=== PATIENT | female | born 1940 | race Caucasian/White ===

== ENCOUNTER 2017-05-06 14:13 | Observation (INO) | payer MEDICARE, OTHER ==
[~2017-05-06] VITALS: Ht 172.7 cm; Wt 93.2 kg
[~2017-05-06 14:13] MED LIST: GLIM1TAB46 PO; LEVO125T PO; METF500T PO
[2017-05-06] MEDS ORDERED: aspirin 81mg tab.chew PO ONE (14:45)
[2017-05-06 15:09] LABS: BASOPHILS % (AUTO) 0.6 % (0-1); EOSINOPHILS # (AUTO) 0.1 X10'3 (0-0.9); EOSINOPHILS % (AUTO) 2.1 % (0-6); HEMATOCRIT 34.6 % (35.0-45.0); HEMOGLOBIN 11.9 g/dl (12.0-16.0); LYMPHOCYTES # (AUTO) 0.9 X10'3 (1.1-4.8); LYMPHOCYTES % (AUTO) 13.1 % (21-51); MEAN CORPUSCULAR HEMOGLOBIN 30.7 PG (27.0-31.0); MEAN CORPUSCULAR HGB CONC 34.6 % (33.0-36.5); MEAN CORPUSCULAR VOLUME 88.9 FL (78-98); MEAN PLATELET VOLUME 6.1 FL (7.4-10.4); MONOCYTES # (AUTO) 0.6 X10'3 (0-0.9); MONOCYTES % (AUTO) 8.8 % (2-12); NEUTROPHILS # (AUTO) 5.4 X10'3 (1.8-7.7); NEUTROPHILS % (AUTO) 75.4 % (42-75); PLATELET COUNT 215 X10'3 (140-440); RED BLOOD COUNT 3.89 X10'6 (4.20-5.60); RED CELL DISTRIBUTION WIDTH 19.9 % (11.5-14.5); WHITE BLOOD COUNT 7.1 X10'3 (4.5-11.0)
[2017-05-06] MEDS ORDERED: ASPI-920 PO (15:10)
[2017-05-06] MEDS ORDERED: ESCI10TA54 PO (15:10)
[2017-05-06] MEDS ORDERED: AMLO2.5T PO (15:10)
[2017-05-06] MEDS ORDERED: ATOR10TA PO (15:10)
[2017-05-06] MEDS ORDERED: NEBI2.5T3 PO (15:10)
[2017-05-06] MEDS ORDERED: PRED10TA PO (15:10)
[2017-05-06 15:31] LABS: ALANINE AMINOTRANSFERASE 27 U/L (12-78); ALBUMIN 3.3 G/DL (3.4-5.0); ALKALINE PHOSPHATASE 51 IU/L (46-116); ANION GAP 7 (8-16); ASPARTATE AMINO TRANSFERASE 17 U/L (10-37); BILIRUBIN,TOTAL 0.5 MG/DL (0.1-1.0); BLOOD UREA NITROGEN 18 MG/DL (7-18); BUN/CREATININE RATIO 14.9 (6.6-38.0); CALCIUM 8.8 MG/DL (8.5-10.1); CHLORIDE 101 MMOL/L (99-107); CREATININE 1.21 MG/DL (0.40-0.90); GLUCOSE 206 MG/DL (70-104); MAGNESIUM 1.6 MG/DL (1.5-2.4); POTASSIUM 4.6 MMOL/L (3.5-5.1); SODIUM 136 MMOL/L (135-145); TOTAL CARBON DIOXIDE 27.9 MMOL/L (24-32); TOTAL PROTEIN 6.7 G/DL (6.4-8.2); eGFR 43 ML/MIN
[2017-05-06] MEDS ORDERED: nitroGLYCERIN 1gm ointment UD TP ONE (15:50)
[2017-05-06] MEDS ORDERED: metoprolol tartrate 1mg/ml inj IV PRN (18:25)
[2017-05-06] MEDS ORDERED: atropine 0.1mg/ml 10ml syringe IV PRN (18:25)
[2017-05-06] MEDS ORDERED: atorvastatin 10mg tablet PO SCH (18:25)
[2017-05-06] MEDS ORDERED: acetaminophen 325mg tablet PO PRN ×2 (18:25)
[2017-05-06] MEDS ORDERED: normal saline 500ml IV soln 500 ML IV SCH (18:25)
[2017-05-06] MEDS ORDERED: morphine 2 MG/ML inj. syringe IV PRN ×2 (18:25)
[2017-05-06] MEDS ORDERED: nitroGLYCERIN 0.4mg SUBLingual tab SL PRN ×2 (18:25)
[2017-05-06] MEDS ORDERED: DOBUTamine-DoBUTrex 500mg/D5W 250 ML IV ONE ×2 (18:25→19:15)
[2017-05-06] MEDS ORDERED: normal saline 500ml IV soln 500 ML IV ONE (18:33)
[2017-05-06] MEDS ORDERED: MESSAGE TO PHARMACY PO ONE (18:55)
[2017-05-06] MEDS ORDERED: glucagon, human recombinant 1mg kit SUBCUT PRN (18:55)
[2017-05-06] MEDS ORDERED: insulin Lispro (HumaLOG) vial - multi-dose SQ SCH (18:55)
[2017-05-06] MEDS ORDERED: dextrose 50%-water 50ml dispensing syringe IV PRN ×2 (18:55)
[2017-05-06] MEDS ORDERED: dextrose ORAL solution 15 GM/59 ML bottle PO PRN ×2 (18:55)
[2017-05-06 19:25] LABS: HEMOGLOBIN A1C 6.9 % (4.5-6.2)
[2017-05-06 20:00] VITALS: BP 147/66
[2017-05-06] MEDS ORDERED: NEBIVOLOL HCL 5 MG PO SCH (20:00)
[2017-05-06] MEDS: amLODIPine 5mg tablet PO SCH (20:20)
[2017-05-06] MEDS ORDERED: insulin glargine (Lantus) pen - multi-dose SQ SCH (21:00)
[2017-05-06 23:00] VITALS: BP 149/67
[2017-05-07] VITALS (10 sets, daily range): BP systolic 112–160; BP diastolic 60–71
[2017-05-07 01:51] LABS: ANION GAP 8 (8-16); BLOOD UREA NITROGEN 22 MG/DL (7-18); BUN/CREATININE RATIO 22.4 (6.6-38.0); CALCIUM 8.8 MG/DL (8.5-10.1); CHLORIDE 102 MMOL/L (99-107); CREATININE 0.98 MG/DL (0.40-0.90); GLUCOSE 166 MG/DL (70-104); MAGNESIUM 1.8 MG/DL (1.5-2.4); POTASSIUM 3.7 MMOL/L (3.5-5.1); SODIUM 135 MMOL/L (135-145); TOTAL CARBON DIOXIDE 25.4 MMOL/L (24-32); eGFR 55 ML/MIN
[2017-05-07 06:33] LABS: BASOPHILS % (AUTO) 0.8 % (0-1); EOSINOPHILS # (AUTO) 0.1 X10'3 (0-0.9); EOSINOPHILS % (AUTO) 1.8 % (0-6); HEMATOCRIT 34.3 % (35.0-45.0); HEMOGLOBIN 11.8 g/dl (12.0-16.0); LYMPHOCYTES # (AUTO) 1.1 X10'3 (1.1-4.8); LYMPHOCYTES % (AUTO) 20.7 % (21-51); MEAN CORPUSCULAR HEMOGLOBIN 30.6 PG (27.0-31.0); MEAN CORPUSCULAR HGB CONC 34.6 % (33.0-36.5); MEAN CORPUSCULAR VOLUME 88.5 FL (78-98); MEAN PLATELET VOLUME 6.5 FL (7.4-10.4); MONOCYTES # (AUTO) 0.6 X10'3 (0-0.9); NEUTROPHILS # (AUTO) 3.5 X10'3 (1.8-7.7); NEUTROPHILS % (AUTO) 65.7 % (42-75); PLATELET COUNT 197 X10'3 (140-440); RED BLOOD COUNT 3.87 X10'6 (4.20-5.60); RED CELL DISTRIBUTION WIDTH 19.9 % (11.5-14.5); WHITE BLOOD COUNT 5.3 X10'3 (4.5-11.0)
[2017-05-07] MEDS ORDERED: docusate sod 250mg capsule PO SCH (08:00)
[2017-05-07] MEDS ORDERED: prednisone 10mg tablet PO SCH (08:00)
[2017-05-07] MEDS ORDERED: levoTHYROXINE 125mcg tablet PO SCH (08:00)
[2017-05-07] MEDS ORDERED: citalopram 20mg tablet PO SCH (08:00)
[2017-05-07] MEDS ORDERED: ASPIRIN 325 MG PO SCH (08:00)
[2017-05-07] MEDS: amLODIPine 5mg tablet PO SCH (08:13)
[2017-05-07] MEDS ORDERED: aspirin 325mg tablet PO SCH (08:30)
[2017-05-07] MEDS ORDERED: regadenoson 0.4mg/5ml syringe IV ONE ×2 (10:15→11:41)
[2017-05-07] MEDS ORDERED: aminophylline 250mg/10ml inj. IV ONE (10:15)
[2017-05-07] MEDS ORDERED: aminophylline inj. 0 ML IV ONE (11:41)
[2017-05-07] MEDS ORDERED: ISOS30TA6 PO (17:44)
[2017-05-08] MEDS ORDERED: isosorbide mononitrate 30mg tab.SR.24H PO SCH (08:00)
== END 2017-05-07 18:40 | disposition home or self-care (01) ==
LOC: ER 14:13 → ED HOLD 18:24 → PCU 3S 20:20
PROVIDERS: ADMIT Internal Medicine; ATTEND Internal Medicine
DX: R07.89 Other chest pain (principal); E03.9 Hypothyroidism, unspecified; E11.9 Type 2 diabetes mellitus without complications; E78.5 Hyperlipidemia, unspecified; I10 Essential (primary) hypertension; I25.10 Atherosclerotic heart disease of native coronary artery without angina pectoris; L27.0 Generalized skin eruption due to drugs and medicaments taken internally; Z95.5 Presence of coronary angioplasty implant and graft; Z86.718 Personal history of other venous thrombosis and embolism; Z86.711 Personal history of pulmonary embolism
CPT/HCPCS: 36415; 71045; 78452; 80048; 80053; 82948; 83036; 83735; 83880; 84443; 84484; 85025; 87070; 93005; 93017; 96372; 99285; A9500; G0378; J1250; J1815; J7030; J7512; J0280

== ENCOUNTER 2017-06-24 16:56 | Emergency (ER) | payer MEDICARE, OTHER ==
[~2017-06-24] VITALS: Ht 170.2 cm; Wt 93.2 kg
[~2017-06-24 16:56] MED LIST changes: +AMLO2.5T PO; +ASPI-920 PO; +ATOR10TA PO; +ESCI10TA54 PO; +ISOS30TA6 PO; +NEBI2.5T3 PO; +PRED10TA PO
[2017-06-24 19:41] LABS: BASOPHILS % (AUTO) 0.6 % (0-1); EOSINOPHILS # (AUTO) 0.1 X10'3 (0-0.9); EOSINOPHILS % (AUTO) 1.4 % (0-6); HEMATOCRIT 39.9 % (35.0-45.0); HEMOGLOBIN 13.6 g/dl (12.0-16.0); LYMPHOCYTES # (AUTO) 1.2 X10'3 (1.1-4.8); LYMPHOCYTES % (AUTO) 22.1 % (21-51); MEAN CORPUSCULAR HEMOGLOBIN 30.8 PG (27.0-31.0); MEAN CORPUSCULAR HGB CONC 34.1 % (33.0-36.5); MEAN CORPUSCULAR VOLUME 90.3 FL (78-98); MEAN PLATELET VOLUME 6.3 FL (7.4-10.4); MONOCYTES # (AUTO) 0.7 X10'3 (0-0.9); MONOCYTES % (AUTO) 12.3 % (2-12); NEUTROPHILS # (AUTO) 3.5 X10'3 (1.8-7.7); NEUTROPHILS % (AUTO) 63.6 % (42-75); PLATELET COUNT 221 X10'3 (140-440); RED BLOOD COUNT 4.42 X10'6 (4.20-5.60); RED CELL DISTRIBUTION WIDTH 17.5 % (11.5-14.5); WHITE BLOOD COUNT 5.5 X10'3 (4.5-11.0)
[2017-06-24 20:03] LABS: GLUCOSE 103 MG/DL (70-104); POTASSIUM 3.6 MMOL/L (3.5-5.1); SODIUM 136 MMOL/L (135-145)
[2017-06-24 20:04] LABS: ALANINE AMINOTRANSFERASE 28 U/L (12-78); ALBUMIN 3.9 G/DL (3.4-5.0); ALKALINE PHOSPHATASE 57 IU/L (46-116); ANION GAP 8 (8-16); ASPARTATE AMINO TRANSFERASE 18 U/L (10-37); BILIRUBIN,TOTAL 0.6 MG/DL (0.1-1.0); BLOOD UREA NITROGEN 17 MG/DL (7-18); BUN/CREATININE RATIO 16.7 (6.6-38.0); CALCIUM 9.8 MG/DL (8.5-10.1); CHLORIDE 101 MMOL/L (99-107); CREATININE 1.02 MG/DL (0.40-0.90); TROPONIN I 0.05 NG/ML (0.0-0.05); eGFR 52 ML/MIN
[2017-06-24] MEDS ORDERED: acetaminophen 325mg tablet PO ONE (20:10)
[2017-06-24] MEDS ORDERED: amLODIPine 5mg tablet PO ONE (20:15)
[2017-06-24] MEDS ORDERED: labetalol 100mg tablet PO ONE (21:10)
[2017-06-24 22:35] VITALS: BP 173/87
== END 2017-06-24 22:36 | disposition home or self-care (01) ==
LOC: ER 16:56
DX: I10 Essential (primary) hypertension (principal); I25.10 Atherosclerotic heart disease of native coronary artery without angina pectoris; E11.9 Type 2 diabetes mellitus without complications; Z86.711 Personal history of pulmonary embolism; Z86.718 Personal history of other venous thrombosis and embolism; Z98.61 Coronary angioplasty status; Z79.82 Long term (current) use of aspirin; Z79.84 Long term (current) use of oral hypoglycemic drugs; Z79.899 Other long term (current) drug therapy; Z88.8 Allergy status to other drugs, medicaments and biological substances
CPT/HCPCS: 36415; 80053; 84484; 85025; 93005; 99285

== ENCOUNTER 2018-04-25 13:34 | Outpatient (CLI) | payer MEDICARE, OTHER ==
[~2018-04-25 13:34] MED LIST changes: -AMLO2.5T PO; +AMLO2.5T4 PO
== END 2018-04-25 23:59 | disposition home or self-care (01) ==
LOC: VAS 13:34
PROVIDERS: ATTEND Internal Medicine Cardiovascular Disease
DX: I82.511 Chronic embolism and thrombosis of right femoral vein (principal); I82.531 Chronic embolism and thrombosis of right popliteal vein; R60.0 Localized edema; I10 Essential (primary) hypertension; E11.9 Type 2 diabetes mellitus without complications; Z87.891 Personal history of nicotine dependence; Z79.82 Long term (current) use of aspirin; Z79.84 Long term (current) use of oral hypoglycemic drugs
CPT/HCPCS: 93970

== ENCOUNTER 2018-05-18 15:39 | Outpatient (CLI) | payer MEDICARE, OTHER ==
[~2018-05-18] VITALS: Ht 172.7 cm; Wt 102.1 kg
[2018-05-18 16:10] LABS: TOTAL HEMOGLOBIN 13.5 G/dl (12.0-16.0)
[2018-05-18] MEDS ORDERED: albuterol 2.5 MG/3 ML nebule NEB PRN (16:35)
== END 2018-05-18 23:59 | disposition home or self-care (01) ==
LOC: RT 15:39
PROVIDERS: ATTEND Internal Medicine
DX: J44.9 Chronic obstructive pulmonary disease, unspecified (principal); R06.09 Other forms of dyspnea; F17.210 Nicotine dependence, cigarettes, uncomplicated; I10 Essential (primary) hypertension; E11.9 Type 2 diabetes mellitus without complications; Z88.2 Allergy status to sulfonamides; Z79.899 Other long term (current) drug therapy; Z88.8 Allergy status to other drugs, medicaments and biological substances
CPT/HCPCS: 85018; 94060; 94727; 94729; 94760